=== PATIENT | male | born 1990 | race Caucasian/White ===

== ENCOUNTER 2016-10-24 10:03 | Emergency (ER) | payer BC, OTHER ==
[~2016-10-24] VITALS: Ht 175.3 cm; Wt 84.1 kg
[~2016-10-24 10:03] MED LIST: ZOFR4TAB3 SL
[2016-10-24 10:04] VITALS: BP 129/74; PULSE 77; RESP 18; TEMP 98; O2SAT 96
[2016-10-24 10:27] VITALS: BP 107/60; PULSE 59; RESP 16; O2SAT 100
[2016-10-24 10:30] VITALS: O2SAT 97
[2016-10-24] MEDS ORDERED: SODIUM CHLOR 0.9% 1000 ML INJ 1,000 ML IV SCH (10:36)
--- NOTE | 2016-10-24 10:43 | PD ---
HPI Chief Complaint: GI Complaint Time Seen by Provider: 10:29 Travel History International Travel<30 days: No Contact w/Intl Traveler<30days: No Traveled to known affect area: No History of Present Illness HPI 26-year-old male complains of persistent vomiting. Patient states that the symptoms started a year ago. Patient was seen in emergency room in the past for the same problem. Patient was seen by pallet rectifier and had upper GI endoscopy, colonoscopy without finding etiology of the symptoms. Patient was put on Zofran and Phenergan in the past without much relief of the nausea vomiting. Patient states that he has frequent soft stool. Patient denies any headache. Patient denies any chest pain or shortness of breath. Patient states that he has occasional pressure to the abdomen however no abdominal pain. Patient denies any dysuria or frequency. Patient denies any fever chills. PFSH Past Medical History Medical History: Denies Significant Hx Influenza Vaccination: No Past Surgical History Oral Surgery: Yes (WISDOM TEETH) Social History Alcohol Use: Yes (RARE "couple times per year") Tobacco Use: Yes (5 CIGS DAILY) Substance Use: No (DENIES) Allergies-Medications (Allergen,Severity, Reaction): Coded Allergies: No Known Allergies (Unverified , 10/24/16) Reported Meds & Prescriptions Reported Meds & Active Scripts Active No Active Prescriptions or Reported Medications Review of Systems General / Constitutional: No: Fever Eyes: No: Visual changes HENT: No: Headaches Cardiovascular: No: Chest Pain or Discomfort Respiratory: No: Shortness of Breath Gastrointestinal: Positive: Nausea, Vomiting, No: Abdominal Pain Genitourinary: No: Dysuria Musculoskeletal: No: Pain Skin: No Rash Neurologic: No: Weakness Psychiatric: No: Depression Endocrine: No: Polydipsia Hematologic/Lymphatic: No: Easy Bruising Physical Exam Narrative GENERAL: Well-nourished, well-developed patient. SKIN: Warm and dry. HEAD: Normocephalic. EYES: No scleral icterus. No injection or drainage. NECK: Supple, trachea midline. No JVD or lymphadenopathy. CARDIOVASCULAR: Regular rate and rhythm without murmurs, gallops, or rubs. RESPIRATORY: Breath sounds equal bilaterally. No accessory muscle use. GASTROINTESTINAL: Abdomen soft, non-tender, nondistended. MUSCULOSKELETAL: No cyanosis, or edema. BACK: Nontender without obvious deformity. No CVA tenderness. Neurologic exam normal. Data Data Last Documented VS Vital Signs Date Time Temp Pulse Resp B/P Pulse Ox O2 Delivery O2 Flow Rate FiO2 10/24/16 10:30 97 Room Air 10/24/16 10:27 59 16 107/60 10/24/16 10:04 98.0 Orders Complete Blood Count With Diff (10/24/16 10:36) Comprehensive Metabolic Panel (10/24/16 10:36) Lipase (10/24/16 10:36) Urinalysis - C+S If Indicated (10/24/16 10:36) Iv Access Insert/Monitor (10/24/16 10:36) Ecg Monitoring (10/24/16 10:36) Oximetry (10/24/16 10:36) Sodium Chlor 0.9% 1000 Ml Inj (Ns 1000 M (10/24/16 10:36) Metoclopramide Inj (Reglan Inj) (10/24/16 10:45) Diphenhydramine Inj (Benadryl Inj) (10/24/16 10:45) Drug Screen, Random Urine (10/24/16 10:41) Labs Laboratory Tests Test 10/24/16 10/24/16 10:30 12:15 White Blood Count 8.6 TH/MM3 Red Blood Count 5.37 MIL/MM3 Hemoglobin 15.4 GM/DL Hematocrit 46.8 % Mean Corpuscular Volume 87.3 FL Mean Corpuscular Hemoglobin 28.6 PG Mean Corpuscular Hemoglobin 32.8 % Concent Red Cell Distribution Width 12.4 % Platelet Count 297 TH/MM3 Mean Platelet Volume 7.2 FL Neutrophils (%) (Auto) 81.2 % Lymphocytes (%) (Auto) 12.7 % Monocytes (%) (Auto) 5.8 % Eosinophils (%) (Auto) 0.1 % Basophils (%) (Auto) 0.2 % Neutrophils # (Auto) 7.0 TH/MM3 Lymphocytes # (Auto) 1.1 TH/MM3 Monocytes # (Auto) 0.5 TH/MM3 Eosinophils # (Auto) 0.0 TH/MM3 Basophils # (Auto) 0.0 TH/MM3 CBC Comment DIFF FINAL Differential Comment Sodium Level 141 MEQ/L Potassium Level 3.6 MEQ/L Chloride Level 102 MEQ/L Carbon Dioxide Level 27.7 MEQ/L Anion Gap 11 MEQ/L Blood Urea Nitrogen 14 MG/DL Creatinine 1.10 MG/DL Estimat Glomerular Filtration 82 ML/MIN Rate Random Glucose 96 MG/DL Calcium Level 9.3 MG/DL Total Bilirubin 0.8 MG/DL Aspartate Amino Transf 19 U/L (AST/SGOT) Alanine Aminotransferase 21 U/L (ALT/SGPT) Alkaline Phosphatase 65 U/L Total Protein 7.5 GM/DL Albumin 4.2 GM/DL Lipase 190 U/L Urine Color YELLOW Urine Turbidity CLEAR Urine pH 6.5 Urine Specific [place] GREATER THAN 1.035 Urine Protein 30 mg/dL Urine Glucose (UA) NEG mg/dL Urine Ketones 80 OR GREATER mg/dL Urine Occult Blood NEG Urine Nitrite NEG Urine Bilirubin NEG Urine Leukocyte Esterase NEG Urine RBC 0-3 /hpf Urine WBC 3-5 /hpf Urine Squamous Epithelial 6-8 /hpf Cells Urine Bacteria FEW /hpf Urine Mucus MANY /lpf Microscopic Urinalysis Comment CULT NOT INDICATED Urine Opiates Screen NEG Urine Barbiturates Screen NEG Urine Amphetamines Screen NEG Urine Benzodiazepines Screen NEG Urine Cocaine Screen NEG Urine Cannabinoids Screen POS MDM Medical Decision Making Medical Screen Exam Complete: Yes Emergency Medical Condition: Yes Interpretation(s) 1313 PM. CBC within normal limit. CMP within normal limit. Urine drug screen positive for cannabis. UA is negative. Differential Diagnosis Differential diagnosis including gastroenteritis, gastroparesis, pancreatitis, cholecystitis, colitis, UTI, pyelonephritis, nephrolithiasis. Narrative Course 26-year-old male complaining persistent vomiting for the past year. Patient had workup by GI specialist in the past. Normal saline solution 1 L IV bolus. Reglan 10 mg IV. Benadryl 25 mg IV. Diagnosis Primary Impression: Recurrent vomiting Patient Instructions: General Instructions Additional Instructions: Reglan as directed. Take Benadryl with Reglan. Follow-up with GI specialist. Return if persistent problem or worse. Follow-up with personal physician also. Med/Other Pt SpecificInfo: Prescription(s) given Scripts Metoclopramide (Reglan)10 Mg Tab10 Mg PO TIDAC #30 TAB Ref 0 Prov:Jamshid Sher MD 10/24/16 Disposition: 01 DISCHARGE HOME Condition: Stable Jamshid Sher MD Oct 24, 2016 10:43
[2016-10-24] MEDS ORDERED: METOCLOPRAMIDE HCL 10 MG/2 ML VIAL IV PUSH ONE (10:45)
[2016-10-24] MEDS ORDERED: diphenhydrAMINE HCL 50 MG/ML VIAL IV PUSH ONE (10:45)
[2016-10-24 11:15] LABS: CHLORIDE 102 MEQ/L (98-107); POTASSIUM 3.6 MEQ/L (3.5-5.1); SODIUM (NA) 141 MEQ/L (136-145)
[2016-10-24 11:18] LABS: ANION GAP 11 MEQ/L (5-15); BICARBONATE 27.7 MEQ/L (21.0-32.0); BLOOD UREA NITROGEN 14 MG/DL (7-18)
[2016-10-24 11:21] LABS: ALT (GPT) 21 U/L (12-78); AST (GOT) 19 U/L (15-37); BASOPHIL % 0.2 % (0.0-2.0); EOSINOPHIL % 0.1 % (0.0-4.0); GLOMERULAR FILTRATION RATE 82 ML/MIN (>89); HEMATOCRIT 46.8 % (39.0-51.0); HEMO FLAGS DIFF FINAL; LYMPH % 12.7 % (9.0-44.0); LYMPHOCYTE # 1.1 TH/MM3 (1.0-4.8); MEAN CELL VOLUME 87.3 FL (80.0-100.0); MEAN CORPUSCULAR HEMOGLOBIN 28.6 PG (27.0-34.0); MEAN CORPUSCULAR HGB CONC 32.8 % (32.0-36.0); MONO % 5.8 % (0.0-8.0); NEUT % 81.2 % (16.0-70.0); PLATELET COUNT 297 TH/MM3 (150-450); RED BLOOD COUNT 5.37 MIL/MM3 (4.50-5.90); RED CELL DISTRIBUTION WIDTH 12.4 % (11.6-17.2); WHITE BLOOD COUNT 8.6 TH/MM3 (4.0-11.0)
[2016-10-24 11:23] LABS: TOTAL BILIRUBIN ADULT 0.8 MG/DL (0.2-1.0)
[2016-10-24 11:24] LABS: ALKALINE PHOSPHATASE 65 U/L (45-117)
[2016-10-24 12:39] LABS: BLOOD, URINE NEG (NEG); GLUCOSE,URINE NEG (NEG); NITRITE,URINE NEG (NEG); PH, URINE 6.5 (5.0-8.5)
[2016-10-24 12:42] LABS: KETONE, URINE 80 OR GREATER mg/dL (NEG)
[2016-10-24 12:43] LABS: AMPHETAMINE, URINE NEG (NEG); BARBITURATES, URINE NEG (NEG); URINE COLOR YELLOW (YELLW/STRAW)
[2016-10-24 12:44] LABS: COCAINE, URINE NEG (NEG)
[2016-10-24 12:45] LABS: BACTERIA, URINE FEW /hpf; COMMENT (UR) CULT NOT INDICATED; CULTURE IF INDICATED CULT NOT INDICATED; MUCUS URINE MANY /lpf (OCC); RBC, URINE 0-3 /hpf (0-3)
[2016-10-24 13:18] VITALS: BP 112/61; PULSE 68; RESP 16; O2SAT 98
[2016-10-24] MEDS ORDERED: REGL10TA5 PO (13:20)
== END 2016-10-24 13:34 | disposition home or self-care (01) ==
LOC: PHED 10:03
DX: R11.10 Vomiting, unspecified (principal); Z72.0 Tobacco use
CPT/HCPCS: 80053; 80307; 81001; 83690; 85025; 96361; 96374; 96375; 99284; J1200; J2765; J7030

== ENCOUNTER 2017-08-30 12:21 | Emergency (ER) | payer BC ==
[~2017-08-30] VITALS: Ht 175.3 cm; Wt 94.0 kg
[~2017-08-30 12:21] MED LIST changes: +REGL10TA5 PO; -ZOFR4TAB3 SL
[2017-08-30 13:11] VITALS: BP 145/67; PULSE 70; RESP 18; TEMP 98.2; O2SAT 100
[2017-08-30] MEDS ORDERED: LEVA750T9 PO (13:58)
[2017-08-30] MEDS ORDERED: CEPH500C PO (13:58)
[2017-08-30] MEDS ORDERED: DOXY100C PO (13:58)
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
[2017-08-30] MEDS ORDERED: LEVOFLOXACIN 750 MG TAB PO ONE (14:00)
[2017-08-30] MEDS ORDERED: CEPHALEXIN MONOHYDRATE 500 MG CAP PO ONE (14:00)
[2017-08-30] MEDS ORDERED: ACETAMINOPHEN/HYDROcodone 325 MG/5 MG TAB PO ONE (14:00)
[2017-08-30] MEDS ORDERED: TETANUS/DIPHTHERIA TOXOID ADULT 0.5 ML VIAL IM ONE (14:00)
[2017-08-30] MEDS ORDERED: DOXYCYCLINE HYCLATE 100 MG CAP PO ONE (14:00)
== END 2017-08-30 16:39 | disposition home or self-care (01) ==
LOC: PHEFT 12:21
DX: M79.642 Pain in left hand (principal); M79.641 Pain in right hand; S61.412A Laceration without foreign body of left hand, initial encounter; S61.411A Laceration without foreign body of right hand, initial encounter; W17.89XA Other fall from one level to another, initial encounter; W22.8XXA Striking against or struck by other objects, initial encounter; Z23 Encounter for immunization; Z72.0 Tobacco use
CPT/HCPCS: 90471; 90714